=== PATIENT | female | born 1990 | race Caucasian/White ===

== ENCOUNTER → 2016-06-19 | Outpatient (CLI) | payer OTHER ==
[~2016-06-19] MED LIST: CLARITIN10 M1 PO; CLARITIN10 M2 PO; CONCERTA27 MG PO; CONCERTA36 MG PO; KEFLEX PO; OMEPRAZOLE20 M2 PO
--- NOTE | ~2016-06-19 | US85 ---
[facility] A Service of [facility] RADIOLOGY TEXT RESULTS PATIENT: NAOMI AVILA LOCATION: CNIV : 92 UNIT #: [id number] AGE: [address]: Maryann Crockett MD SEX: F ORDER DR: [id number] [facility] [address] [place], [place] [address] [id number] O MR#: [id number] Acc #: [id number] NAME: NAOMI AVILA : 1990 SEX: F STUDY DATE/TIME: 06/19/2016 8:51 UNIT: CNIV ROOM: STUDY DESCRIPTION: [facility] [place] L2C [employer] Attending Physician: Maryann Crockett M.D. Referring Physician: Maryann Crockett M.D. Ordering Physician: Maryann Crockett M.D. Primary Care Physician: Maryann Crockett M.D. MEDICAL IMAGING REPORT This report is preliminary unless electronic signature is present EXAM Left leg vein Doppler, 06/19 INDICATION Left leg pain for the last 5 months. TECHNIQUE Venous ultrasound examination of the left lower extremity was performed using grayscale, spectral Doppler and color flow Doppler imaging. FINDINGS The examination is negative. There is no evidence of left lower extremity deep venous thrombus from the groin to the lower calf. Visualized greater saphenous vein is also patent. IMPRESSION Negative examination. No evidence of left lower extremity deep venous thrombosis. Dictated by... Stefan Palacios Jr., M.D. THIS IS AN ELECTRONICALLY VERIFIED REPORT Stefan Palacios Jr., M.D. at 06/19/2016 2:58 PM ANASTACIA/kranthi TD: 06/19/2016 11:56 JOB #: [id number] MEDICAL IMAGING REPORT COPY
== END | disposition home or self-care (01) ==
LOC: CNIV 08:16
DX: M79.605 Pain in left leg (principal)
CPT/HCPCS: 93971